=== PATIENT | male | born 1950 | race Caucasian/White ===

== ENCOUNTER → 2023-12-10 10:13 | Outpatient (REF) | payer MEDICARE, OTHER, SELFPAY | LOC: RCS 10:13 | PROVIDERS: ATTENDING PHYSICIAN Internal Medicine Cardiovascular Disease; FAMILY PHYSICIAN Physician Assistant Medical | DX: Z00.00 Encounter for general adult medical examination without abnormal findings (principal); R01.1 Cardiac murmur, unspecified | CPT/HCPCS: 93306 ==

== ENCOUNTER 2024-11-13 06:18 | Day surgery (SDC) | payer MEDICARE, OTHER, SELFPAY | END 2024-11-13 09:58 | disposition home or self-care (01) | LOC: GI 06:18 | PROVIDERS: ATTENDING PHYSICIAN Internal Medicine Gastroenterology | DX: Z12.11 Encounter for screening for malignant neoplasm of colon (principal); D12.5 Benign neoplasm of sigmoid colon; K64.8 Other hemorrhoids | CPT/HCPCS: 45385; 45380; 88305 ==